=== PATIENT | female | born 1995 | race Caucasian/White ===

== ENCOUNTER 2018-09-20 11:58 | Emergency (ER) | payer SELFPAY ==
[2018-09-20] MEDS ORDERED: ONDANSETRON HCL INJ/PF 4 MG/2 ML SDV IV ONE (13:18)
[2018-09-20] MEDS ORDERED: NORMAL SALINE 1000 ML 1,000 ML IV ONE (13:18)
[2018-09-20] MEDS ORDERED: FAMOTIDINE INJ/PF 20 MG/2 ML SDV IV ONE (13:19)
[2018-09-20] MEDS ORDERED: OXYMETAZOLINE HCL 0.05% NASAL SPRAY 15 ML BOTTLE NASL ONE (13:19)
--- NOTE | 2018-09-20 13:47 | ER Document Report ---
ED General - General Chief Complaint: Nausea/Vomiting Stated Complaint: VOMITING, DIZZY Time Seen by Provider: 09/20/18 13:11 Mode of Arrival: Ambulatory Information source: Patient, [facility] Records Notes: 23-year-old female presents with complaint of cough, nasal congestion and vomiting that started 3 days prior to arrival. Patient describes the cough as dry, persistent and not associated with chest pain or shortness of breath. Patient reports she has been unable to tolerate anything by mouth. She reports multiple episodes of vomiting today. She denies any blood in her stool or emesis. She denies fever, chills, abdominal pain. Last menstrual period was September 17, 2018. Patient did not receive a flu shot this year. She denies sick contacts, recent antibiotic use. TRAVEL OUTSIDE OF THE [place] IN LAST 30 DAYS: No - HPI Onset: Other Onset/Duration: Gradual, Persistent Quality of pain: No pain Associated symptoms: Nonproductive cough, Nausea, Vomiting. denies: Diarrhea Exacerbated by: Coughing, Food Relieved by: Denies Similar symptoms previously: No Recently seen / treated by doctor: No - Related Data Allergies/Adverse Reactions: Penicillins Adverse Reaction (Verified 09/20/18 12:00) Past Medical History - General Information source: Patient - Social History Smoking Status: Never Smoker Frequency of alcohol use: None Drug Abuse: None Lives with: Family Family History: Reviewed & Not Pertinent Patient has suicidal ideation: No Patient has homicidal ideation: No - Medical History Medical History: Negative Renal/ Medical History: Denies: Hx Peritoneal Dialysis Past Surgical History: Reports: Hx Orthopedic Surgery - right femur Review of Systems - Review of Systems Notes: REVIEW OF SYSTEMS: CONSTITUTIONAL : Denies fever, chills, or sweats. Denies recent illness. Denies weight loss, recent hospitalizations. EENT: Denies visual changes, eye pain. Denies sore throat, oral lesions, difficulty swallowing. CARDIOVASCULAR: Denies chest pain. Denies palpitations. Denies lower extremity edema. RESPIRATORY: Denies shortness of breath, wheezing. GASTROINTESTINAL: Denies abdominal pain or distention. Denies diarrhea. Denies blood in vomitus, stools, or per rectum. Denies black, tarry stools. Denies constipation. GENITOURINARY: Denies difficulty urinating, painful urination, frequency, blood in urine, or vaginal discharge. MUSCULOSKELETAL: Denies back or neck pain or stiffness. Denies joint pain or swelling. SKIN: Denies rash, lesions or sores. HEMATOLOGIC : Denies easy bruising or bleeding. LYMPHATIC: Denies swollen glands. NEUROLOGICAL: Denies confusion or altered mental status. Denies loss of consciousness. Denies dizziness or lightheadedness. Denies headache. Denies weakness or paralysis. Denies problems difficulty with ambulation, slurred speech. Denies sensory loss, numbness, or tingling. Denies seizures. PSYCHIATRIC: Denies anxiety or stress. Denies depression, suicidal ideation, or homicidal ideation. Denies visual or auditory hallucinations. Physical Exam - Vital signs Vitals: Temp Pulse Resp BP Pulse Ox 98.2 F 85 18 128/74 H 96 09/20/18 12:19 09/20/18 12:19 09/20/18 12:19 09/20/18 12:09/20/18 12:19 - Notes Notes: PHYSICAL EXAMINATION: GENERAL: Well-appearing, well-nourished and in no acute distress. HEAD: Atraumatic, normocephalic. EYES: Pupils equal round and reactive to light, extraocular movements intact, conjunctiva are normal. ENT: Nares patent, oropharynx clear without exudates. Moist mucous membranes. NECK: Normal range of motion, supple without lymphadenopathy LUNGS: Breath sounds clear to auscultation bilaterally and equal. No wheezes rales or rhonchi. HEART: Regular rate and rhythm without murmurs ABDOMEN: Soft, nontender, nondistended abdomen. No guarding, no rebound. No masses appreciated. Female : deferred Musculoskeletal: Normal range of motion, no pitting or edema. No cyanosis. NEUROLOGICAL: Cranial nerves grossly intact. Normal speech, normal gait. Normal sensory, motor exams PSYCH: Normal mood, normal affect. SKIN: Warm, Dry, normal turgor, no rashes or lesions noted. Course - Re-evaluation Re-evalutation: 09/20/18 14:59 Laboratory 09/20/18 14:06 Influenza A (Rapid) NEGATIVE Influenza B (Rapid) NEGATIVE Chest X-Ray 09/20/18 13:18 IMPRESSION: NO ACUTE RADIOGRAPHIC FINDING IN THE CHEST. Temp Pulse Resp BP Pulse Ox 98.2 F 85 18 128/74 H 96 09/20/18 12:19 09/20/18 12:19 09/20/18 12:19 09/20/18 12:19 09/20/18 12:19 09/20/18 20:14 23-year-old female presents with complaint of cough, nasal congestion and vomiting that started 3 days prior to arrival. Patient describes the cough as dry, persistent and not associated with chest pain or shortness of breath. Patient reports she has been unable to tolerate anything by mouth. She reports multiple episodes of vomiting today. She denies any blood in her stool or emesis. She denies fever, chills, abdominal pain. Last menstrual period was September 17, 2018. Patient did not receive a flu shot this year. She denies sick contacts, recent antibiotic use. Vital signs reviewed and within normal limits upon arrival. Patient does not appear toxic or dehydrated. She is in no acute distress. Influenza is negative. Chest x-ray shows no acute findings. Patient's exam is consistent with a viral upper respiratory infection. Patient has had no vomiting throughout her ED course. Patient did receive IV fluids, Zofran, Reglan, Benadryl,, Afrin. Patient was evaluated and treated as appropriate for the patient's presenting symptoms and complaint, with consideration of any critical or life threatening conditions that may be associated with their obtained history and exam as noted above. All results were discussed with patient . Patient provided the opportunity to ask questions, and express concerns. Patient was educated on treatments based on their presumed diagnosis as noted above. At this time we will discharge the patient with return precautions and follow-up recommendations. Verbal discharge instructions given a the bedside. Medication warnings reviewed. Patient is in agreement with this plan and has verbalized understanding of return precautions. After careful consideration I feel that that patient can be safely discharged from the emergency department, they were advised to followup with a primary care physician in 2-3 days. Dictation on this chart was performed using voice recognition software and may result in unintended grammatical, spelling, syntax or errors. - Vital Signs Vital signs: Temp Pulse Resp BP Pulse Ox 98.3 F 78 18 124/57 L 100 09/20/18 15:15 09/20/18 15:15 09/20/18 12:19 09/20/18 15:15 09/20/18 15:15 - Diagnostic Test Radiology reviewed: Image reviewed, Reports reviewed Discharge - Discharge Clinical Impression: Cough Nausea & vomiting Qualifiers: Vomiting type: unspecified Vomiting Intractability: non-intractable Qualified Code(s): R11.2 - Nausea with vomiting, unspecified Sinusitis Qualifiers: Sinusitis location: frontal Chronicity: unspecified Qualified Code(s): J32.1 - Chronic frontal sinusitis Upper respiratory infection Qualifiers: URI type: unspecified URI Qualified Code(s): J06.9 - Acute upper respiratory infection, unspecified Pharyngitis Qualifiers: Pharyngitis/tonsillitis etiology: unspecified etiology Qualified Code(s): J02.9 - Acute pharyngitis, unspecified Condition: Good Disposition: HOME, SELF-CARE Instructions: Intravenous (IV) Fluids ([facility]), Sinusitis ([facility]), Sore Throat ([facility]), Upper Respiratory Illness ([facility]), Viral Syndrome ([facility]), Vomiting ([facility]) Additional Instructions: Your symptoms are most likely due to a viral infection it should resolve over the next 7-14 days. You should take [id number] guanfacine per bottle instructions to help thin the mucus. For nasal congestion: He is the Afrin that was provided to you for nasal congestion. Use only per bottle instructions and be sure to never use this for more than 3 days if you can develop severe rebound congestion. You may also use tylenol or ibuprofen as needed for aches and throat discomfort. Take the Zofran that was provided for you as needed for nausea. Please be sure to drink plenty of fluids and get rest. Return to the emergency department he began having difficulty breathing, chest pain, persistent vomiting, or any other symptoms that are concerning to you. Prescriptions: Pseudoephedrine HCl [Sudafed] 30 mg PO Q12H #14 tablet Forms: Return to Work
--- NOTE | 2018-09-20 14:11 | RADIOLOGY REPORT (SQ) ---
EXAM DESCRIPTION: CHEST 2 VIEWS COMPLETED DATE/TIME: 09/20/2018 2:03 pm REASON FOR STUDY: cough COMPARISON: None. EXAM PARAMETERS: NUMBER OF VIEWS: two views TECHNIQUE: Digital Frontal and Lateral radiographic views of the chest acquired. RADIATION DOSE: NA LIMITATIONS: none FINDINGS: LUNGS AND PLEURA: No opacities, masses or pneumothorax. No pleural effusion. MEDIASTINUM AND HILAR STRUCTURES: No masses or contour abnormalities. HEART AND VASCULAR STRUCTURES: Heart normal size. No evidence for failure. BONES: No acute findings. HARDWARE: None in the chest. OTHER: No other significant finding. IMPRESSION: NO ACUTE RADIOGRAPHIC FINDING IN THE CHEST. TECHNICAL DOCUMENTATION: JOB ID: [id number] [employer]- All Rights Reserved Reading location - IP/workstation name: [email or web address]
[2018-09-20 14:41] LABS: A TYPE INFLUENZA AG NEGATIVE (NEGATIVE); B INFLUENZA AG NEGATIVE (NEGATIVE)
[2018-09-20] MEDS ORDERED: DIPHENHYDRAMINE HCL 50 MG/ML VIAL IV ONE (14:59)
[2018-09-20] MEDS ORDERED: PSEUDOEPHEDRINE HCL 30 MG TABLET PO ONE (14:59)
[2018-09-20] MEDS ORDERED: METOCLOPRAMIDE HCL INJ/PF 10 MG/2 ML SDV IV ONE (14:59)
[2018-09-20] MEDS ORDERED: LIDOCAINE 2% VISCOUS SOLN 20 ML UDCUP PO ONE (15:00)
[2018-09-20] MEDS ORDERED: ONDANSETRON ODT 4 MG TAB (6 TAB/ER DISP) PO PRN (15:04)
[2018-09-20 15:44] VITALS: BP 124/57
== END 2018-09-20 15:44 | disposition home or self-care (01) ==
LOC: ER 11:58
DX: J02.9 Acute pharyngitis, unspecified (principal); J06.9 Acute upper respiratory infection, unspecified; J32.1 Chronic frontal sinusitis; R68.89 Other general symptoms and signs; R11.2 Nausea with vomiting, unspecified; Z88.0 Allergy status to penicillin
CPT/HCPCS: 99284; 96361; 96374; 96375; 87804; 71046; J1200; J3490 ×2; J2765; J2405; J7030; S0028

== ENCOUNTER 2018-10-02 13:25 | Emergency (ER) | payer OTHER ==
[2018-10-02] MEDS ORDERED: ACETAMINOPHEN 325 MG TABLET PO ONE (13:49)
[2018-10-02] MEDS ORDERED: LIDOCAINE 5% (700 MG) TRANSDERMAL ADH..PATCH TP ONE (13:50)
--- NOTE | 2018-10-02 13:52 | ER Document Report ---
HPI - HPI Patient complains to provider of: arm Injury Time Seen by Provider: 10/02/18 13:41 Onset: Other - 2 days ago Onset/Duration: Persistent Quality of pain: Achy Pain Level: 3 Context: Patient states she slipped at work and fell hitting the posterior aspect of her distal right humerus on a sink divider. Patient states that since then she has had weakness to her right hand and has had pain to the entire right upper extremity. Patient denies any head injury or loss of consciousness. Patient without any neck pain. Patient does have left upper thoracic back pain. Associated Symptoms: Other - Right upper extremity pain Exacerbated by: Movement Relieved by: Denies Similar symptoms previously: No Recently seen / treated by doctor: No - ROS ROS below otherwise negative: Yes Systems Reviewed and Negative: Yes All other systems reviewed and negative - CONSTITUTIONAL Constitutional: DENIES: Fever, Chills - NEURO Neurology: REPORTS: Weakness - Weakness to the adding machine mechanic of the ri. DENIES: Headache - CARDIOVASCULAR Cardiovascular: DENIES: Chest pain - RESPIRATORY Respiratory: DENIES: Trouble Breathing, Coughing - GASTROINTESTINAL Gastrointestinal: DENIES: Nausea - REPRODUCTIVE Reproductive: DENIES: : - MUSCULOSKELETAL Musculoskeletal: REPORTS: Extremity pain - Right upper extremity pain, Back Pain - Upper back pain - DERM Skin Color: Ecchymosis - Right upper arm Skin Problems: None Past Medical History - General Information source: Patient - Social History Smoking Status: Current Every Day Smoker Smoking Education Provided: Yes Frequency of alcohol use: None Drug Abuse: None Occupation: [employer] Lives with: Spouse/Significant other Family History: Reviewed & Not Pertinent - Medical History Medical History: Negative Renal/ Medical History: Denies: Hx Peritoneal Dialysis Past Surgical History: Reports: Hx Orthopedic Surgery - right femur Vertical Provider Document - CONSTITUTIONAL Agree With Documented VS: Yes Exam Limitations: No Limitations General Appearance: WD/WN, No Apparent Distress - INFECTION CONTROL TRAVEL OUTSIDE OF THE [place] IN LAST 30 DAYS: No - HEENT HEENT: Atraumatic, Normocephalic - NECK Neck: Normal Inspection, Supple. negative: Lymphadenopathy-Left, Lymphadenopathy-Right - RESPIRATORY Respiratory: Breath Sounds Normal, No Respiratory Distress - CARDIOVASCULAR Cardiovascular: Regular Rate, Regular Rhythm, No Murmur Pulses: Normal: Radial Notes: Normal capillary refill to fingers of right hand - BACK Back: Abnormal Inspection - Left thoracic paraspinal tenderness, no midline tenderness step-off or deformity. negative: CVA Tenderness-Right, CVA Tenderness-Left - MUSCULOSKELETAL/EXTREMETIES Notes: Patient able to move right shoulder joint through full range of motion, patient moves right elbow guardedly. Patient with weakened adding machine mechanic to right hand. Patient able to extend and flex the right wrist and is able to abduct all the fingers of the right hand. Patient is unable to oppose the thumb and little finger of the right hand. Patient able to flex all fingers of hand although was not able to close hand into a fist. - NEURO Level of Consciousness: Awake, Alert, Appropriate Notes: Weakened adding machine mechanic to right hand - DERM Integumentary: Warm, Dry Adult Front & Back Diagram: 1 - Ecchymotic area to distal right humerus Course - Re-evaluation Re-evalutation: 10/02/18 14:51 Patient can flex fingers of right hand although cannot make a fist. Patient cannot oppose the right thumb and small finger. Patient does have paresthesia and pain symptoms in a medial, radial and ulnar nerve distribution pattern although is able to extend and flex the wrist and fingers of the right hand, and patient is able to abduct the fingers of the right hand. Patient without any findings worrisome for vascular compromise. No fracture noted on x-ray. Patient advised that she will need to see neurology and orthopedics for further evaluation. - Vital Signs Vital signs: Temp Pulse Resp BP Pulse Ox 98.7 F 92 18 149/86 H 95 10/02/18 13:35 10/02/18 13:35 10/02/18 13:35 10/02/18 13:35 10/02/18 13:35 - Laboratory Laboratory results interpreted by me: 10/02/18 14:54 Labs- Entire Visit 10/02/18 14:03 Urine HCG, Qual NEGATIVE - Diagnostic Test Radiology reviewed: Reports reviewed Discharge - Discharge Clinical Impression: Right humerus contusion, Nerve injury Upper back strain Qualifiers: Encounter type: initial encounter Qualified Code(s): S29.012A - Strain of muscle and tendon of back wall of thorax, initial encounter Condition: Stable Disposition: HOME, SELF-CARE Instructions: Contusion ([facility]), Nerve Contusion ([facility]), Upper Back Strain ([facility]) Additional Instructions: Return immediately for any new or worsening symptoms Followup with your Workmen's Compensation care provider, call tomorrow to make a followup appointment You will need referral to neurology and orthopedics for further evaluation. Prescriptions: Cyclobenzaprine HCl [Flexeril 10 Mg Tablet] 10 mg PO TID #15 tablet Naproxen [Naprosyn 250 Nmg Tablet] 1 tab PO BID #14 tablet Forms: Smoking Cessation Education, Return to Work Referrals: [facility] [Provider Group] - Follow up as needed NEUROLOGY [Provider Group] - Follow up as needed
--- NOTE | 2018-10-02 14:11 | RADIOLOGY REPORT (SQ) ---
EXAM DESCRIPTION: HUMERUS RIGHT COMPLETED DATE/TIME: 10/02/2018 2:02 pm REASON FOR STUDY: fall, R upper arm pain COMPARISON: None. NUMBER OF VIEWS: Two views. TECHNIQUE: Two radiographic images were acquired of the right humerus to include elbow and shoulder in at least one projection. LIMITATIONS: None. FINDINGS: MINERALIZATION: Normal. BONES: No acute fracture or dislocation. No worrisome bone lesions. SOFT TISSUES: No obvious swelling or foreign body. OTHER: No other significant finding. IMPRESSION: NEGATIVE STUDY OF THE RIGHT HUMERUS. NO RADIOGRAPHIC EVIDENCE OF ACUTE INJURY. TECHNICAL DOCUMENTATION: JOB ID: [id number] [employer]- All Rights Reserved Reading location - IP/workstation name: [email or web address]
[2018-10-02 15:25] VITALS: BP 124/72
== END 2018-10-02 15:25 | disposition home or self-care (01) ==
LOC: ER 13:25
DX: S29.012A Strain of muscle and tendon of back wall of thorax, initial encounter (principal); S40.021A Contusion of right upper arm, initial encounter; T14.8XXA Other injury of unspecified body region, initial encounter; R53.1 Weakness; R20.2 Paresthesia of skin; W01.198A Fall on same level from slipping, tripping and stumbling with subsequent striking against other object, initial encounter; Y92.511 Restaurant or cafe as the place of occurrence of the external cause; Y99.0 Civilian activity done for income or pay; F17.200 Nicotine dependence, unspecified, uncomplicated
CPT/HCPCS: 81025; 99283

== ENCOUNTER → 2020-01-02 | Outpatient (CLI) | payer SELFPAY ==
--- NOTE | 2020-01-02 15:03 | RADIOLOGY REPORT (SQ) ---
EXAM DESCRIPTION: U/S HR2BFIP TRNABD 1GES W/ODOP IMAGES COMPLETED DATE/TIME: 01/02/2020 1:55 pm REASON FOR STUDY: Z34.81 ENCOUNTER FOR SUPRVSN OF NORMAL , FIRST TRIMESTER Z34.81 ENCOUNTE R FOR SUPRVSN OF NORMAL , FIRST TRIM COMPARISON: None. TECHNIQUE: Static and Dynamic grayscale imaging performed of gravid uterus using transabdominal appr oach. Additional selected color Doppler and spectral images recorded. All stored on PACS. LIMITATIONS: None. FINDINGS: FETUSES SEEN:1 EGA: 16 weeks 5 days Calculated using BPD,FL,HC,AC documented on images. 6 weeks discrepancy with cl inical dates. DUONG: 06/13/2020 EFW: 167+/- 25 grams PERCENTILE: Not applicable. Fetus less than or equal to 20 weeks gestation. MALLORY: Adequate PLACENTA: Posterior. Appears to be a marginal placenta previa at this time. PRESENTATION: Breech ANATOMY: HEART RATE: 155 beats per minute. Anatomical survey not performed. MATERNAL ADNEXA: Maternal ovaries not visualized. CERVICAL LENGTH: 6 cm. Closed. OTHER: No other significant finding. IMPRESSION: LIVING INTRAUTERINE . ESTIMATED GESTATIONAL AGE 16 weeks 5 days. Anatomical survey was not performed. Marginal placenta previa at this time. Recommend appropriate follow-up. Trimester of : Second trimester - 13 weeks 1 day to 27 weeks 6 days. TECHNICAL DOCUMENTATION: JOB ID: [id number] 2010 [employer]- All Rights Reserved Reading location - IP/workstation name: [email or web address]
== END ==
LOC: RAD 13:04
PROVIDERS: ATTEND Midwife
DX: Z34.82 Encounter for supervision of other normal pregnancy, second trimester (principal); Z3A.16 16 weeks gestation of pregnancy
CPT/HCPCS: 76801

== ENCOUNTER 2020-01-10 13:21 | Emergency (ER) | payer MEDICAID ==
--- NOTE | 2020-01-10 14:23 | ER Document Report ---
ED Medical Screen (RME) - General Chief Complaint: Abdominal Pain Stated Complaint: ABDOMINAL PAIN Time Seen by Provider: 01/10/20 14:22 Primary Care Provider: AMEENA MUNGUIA CNM [Primary Care Provider] - Follow up as needed Mode of Arrival: Ambulatory Information source: Patient Notes: 24-year-old female presented to ED for complaint of severe lower abdominal pelvic pain. She is 17 weeks . Her last ultrasound was on 21 December. She states at that time they told her she had placenta previa. She is alert oriented respirations regular nonlabored speaking in full sentences. She states she is not having any vaginal discharge or vaginal bleeding. I have greeted and performed a rapid initial assessment of this patient. A comprehensive ED assessment and evaluation of the patient, analysis of test results and completion of medical decision making process will be conducted by an additional ED providers. TRAVEL OUTSIDE OF THE [place] IN LAST 30 DAYS: No - Related Data Allergies/Adverse Reactions: Penicillins Adverse Reaction (Verified 01/10/20 14:14) Past Medical History - Social History Frequency of alcohol use: None Drug Abuse: None Renal/ Medical History: Denies: Hx Peritoneal Dialysis Past Surgical History: Reports: Hx Orthopedic Surgery - right femur Physical Exam - Vital signs Vitals: Temp 98.3 F 01/10/20 13:22 Course - Vital Signs Vital signs: Temp Pulse Resp BP Pulse Ox 98.3 F 102 H 22 H 145/83 H 98 01/10/20 13:26 01/10/20 13:26 01/10/20 13:26 01/10/20 13:26 01/10/20 13:26 Doctor's Discharge - Discharge Referrals: AMEENA MUNGUIA CNM [Primary Care Provider] - Follow up as needed
[2020-01-10] MEDS ORDERED: NORMAL SALINE 1000 ML 1,000 ML IV ONE ×2 (14:24→16:34)
[2020-01-10 14:52] LABS: ABSOLUTE BASOPHILS # (AUTO) 0.1 10^3/uL (0.0-0.2); ABSOLUTE EOSINOPHILS # (AUTO) 0.1 10^3/uL (0.0-0.6); ABSOLUTE MONOCYTES (AUTO) 0.5 10^3/uL (0.1-1.4); ABSOLUTE NEUT (AUTO) 11.8 10^3/uL (1.7-8.2); BASOPHILS % (AUTO) 0.4 % (0-2); EOSINOPHILS % (AUTO) 0.4 % (0-6); HEMATOCRIT 36.9 % (36.0-47.0); HEMOGLOBIN 12.6 g/dL (12.0-15.5); LYMPHOCYTES % (AUTO) 13.7 % (13-45); MEAN CORPUSCULAR HEMOGLOBIN 27.9 pg (27.0-33.4); MEAN CORPUSCULAR HGB CONC 34.2 g/dL (32.0-36.0); MEAN CORPUSCULAR VOLUME 82 fl (80-97); MONOCYTES % (AUTO) 3.5 % (3-13); PLATELET COUNT 240 10^3/uL (150-450); RED BLOOD COUNT 4.51 10^6/uL (3.72-5.28); RED CELL DISTRIBUTION WIDTH 14.6 % (11.5-14.0); TOTAL CELLS COUNTED % (AUTO) 100 %; WHITE BLOOD COUNT 14.4 10^3/uL (4.0-10.5)
[2020-01-10 15:08] LABS: ALBUMIN 3.8 g/dL (3.5-5.0); ALKALINE PHOSPHATASE 71 U/L (38-126); ANION GAP 9 (5-19); ASPARTATE AMINO TRANSFERASE 20 U/L (14-36); BILIRUBIN,TOTAL 0.4 mg/dL (0.2-1.3); BLOOD UREA NITROGEN 6 mg/dL (7-20); CALCIUM 9.6 mg/dL (8.4-10.2); CARBON DIOXIDE 24 mmol/L (22-30); CHLORIDE 102 mmol/L (98-107); GLUCOSE 85 mg/dL (75-110); POTASSIUM 4.2 mmol/L (3.6-5.0); TOTAL PROTEIN 7.3 g/dL (6.3-8.2)
--- NOTE | 2020-01-10 15:52 | RADIOLOGY REPORT (SQ) ---
EXAM DESCRIPTION: U/S OB LIMITED IMAGES COMPLETED DATE/TIME: 01/10/2020 3:17 pm REASON FOR STUDY: 17 weeks severe abdominal pain COMPARISON: Ultrasound of the abdomen from 01/02/2020. TECHNIQUE: Limited transabdominal grayscale ultrasound for evaluation of specific requested obstetri bhavya parameters. LIMITATIONS: None. FINDINGS: CERVICAL LENGTH: 2.8 cm Closed. MALLORY: 4 cm. LVP: 4 cm. FHR: 149 beats per minute. PRESENTATION: Vertex PLACENTA: Posterior ANATOMY: Not assessed OTHER: The placenta is heterogeneous but on Doppler there is intact color flow within it. IMPRESSION: LIMITED OBSTETRICAL ULTRASOUND WITH MEASURED PARAMETERS DELINEATED ABOVE. THE PLACENTA IS HETEROGENEOUS BUT ON DOPPLER THERE IS INTACT COLOR FLOW WITHIN IT. A SHORT-TERM FOLL OW-UP ULTRASOUND IS RECOMMENDED. Trimester of : Second trimester - 13 weeks 1 day to 27 weeks 6 days. TECHNICAL DOCUMENTATION: JOB ID: [id number] 2010 [employer]- All Rights Reserved Reading location - IP/workstation name: [email or web address]
--- NOTE | 2020-01-10 16:37 | ER Document Report ---
ED General - General Chief Complaint: Abdominal Pain Stated Complaint: ABDOMINAL PAIN Time Seen by Provider: 01/10/20 14:22 Primary Care Provider: AMEENA MUNGUIA CNM [NO LOCAL MD] - Follow up as needed Mode of Arrival: Ambulatory Information source: Patient TRAVEL OUTSIDE OF THE [place] IN LAST 30 DAYS: No - HPI Notes: Patient complains of bilateral lower quadrant abdominal pain. She states this started this morning. She states it is severe and slightly worse on the right side than the left. She states it does radiate from the right to the left. It is constant and sharp. It is been getting worse throughout the day. She also states she has nausea and vomiting. No problems with stools. No vaginal discharge or bleeding. She is currently approximately 13 weeks . No fevers. She denies any previous surgeries on her abdomen. - Related Data Allergies/Adverse Reactions: Penicillins Adverse Reaction (Verified 01/10/20 14:14) Past Medical History - General Information source: Patient - Social History Smoking Status: Never Smoker Frequency of alcohol use: None Drug Abuse: None Family History: Reviewed & Not Pertinent Patient has homicidal ideation: No Renal/ Medical History: Denies: Hx Peritoneal Dialysis Past Surgical History: Reports: Hx Orthopedic Surgery - right femur Review of Systems - Review of Systems Constitutional: denies: Chills, Fever Cardiovascular: denies: Chest pain, Palpitations Respiratory: denies: Cough, Short of breath -: Yes All other systems reviewed and negative Physical Exam - Vital signs Vitals: Temp 98.3 F 01/10/20 13:22 Interpretation: Normal - General General appearance: Appears well, Alert - HEENT Head: Normocephalic, Atraumatic Eyes: Normal Pupils: PERRL - Respiratory Respiratory status: No respiratory distress Chest status: Nontender Breath sounds: Normal Chest palpation: Normal - Cardiovascular Rhythm: Regular Heart sounds: Normal auscultation Murmur: No - Abdominal Inspection: Normal Distension: No distension Bowel sounds: Normal Tenderness: Tender - Patient has bilateral lower quadrant tenderness to palpation slightly greater on the right. Organomegaly: No organomegaly - Back Back: Normal, Nontender - Extremities General upper extremity: Normal inspection, Nontender, Normal color, Normal ROM, Normal temperature General lower extremity: Normal inspection, Nontender, Normal color, Normal ROM, Normal temperature, Normal weight bearing. No: Jenny's sign - Neurological Neuro grossly intact: Yes Cognition: Normal Orientation: AAOx4 [place] Coma Scale Eye Opening: Spontaneous Kaci Coma Scale Verbal: Oriented Kaci Coma Scale Motor: Obeys Commands [place] Coma Scale Total: 15 Speech: Normal Motor strength normal: LUE, RUE, LLE, RLE Sensory: Normal - Psychological Associated symptoms: Normal affect, Normal mood - Skin Skin Temperature: Warm Skin Moisture: Dry Skin Color: Normal Course - Re-evaluation Re-evalutation: 01/10/20 18:36 At this time patient is still waiting for the MRI of her abdomen. I will turn the care of the patient over Dr. Cortes who will follow up on MRI results determine final disposition and plan. Ultrasound and clinical evaluation is not consistent with an ectopic at this time. Her vital signs are stable. - Vital Signs Vital signs: Temp Pulse Resp BP Pulse Ox 98.3 F 102 H 22 H 145/83 H 98 01/10/20 13:26 01/10/20 13:26 01/10/20 13:26 01/10/20 13:26 01/10/20 13:26 - Laboratory Result Diagrams: 01/10/20 14:35 01/10/20 14:35 Laboratory results interpreted by me: 01/10/20 01/10/20 01/10/20 14:35 14:35 16:36 WBC 14.4 H RDW 14.6 H Absolute Neuts (auto) 11.8 H Seg Neutrophils % 82.0 H Sodium 134.5 L BUN 6 L Creatinine 0.46 L Beta HCG, Quant 39369.00 H Urine Ketones 20 H Urine Nitrite POSITIVE H Ur Leukocyte Esterase MODERATE H Urine Ascorbic Acid 20 H - Diagnostic Test Radiology reviewed: Image reviewed, Reports reviewed Discharge - Discharge Clinical Impression: Abdominal pain Qualifiers: Abdominal location: lower abdomen, unspecified Qualified Code(s): R10.30 - Lower abdominal pain, unspecified Condition: Stable Disposition: OTHER Referrals: AMEENA MUNGUIA CNM [NO LOCAL MD] - Follow up as needed
[2020-01-10 17:01] LABS: APPEARANCE,URINE SLIGHTLY-CLOUDY; BILIRUBIN,URINE NEGATIVE (NEGATIVE); COLOR,URINE YELLOW; GLUCOSE, URINE NEGATIVE (NEGATIVE); KETONES,URINE 20 mg/dL (NEGATIVE); LEUKOCYTE ESTERASE,URINE MODERATE (NEGATIVE); NITRITE,URINE POSITIVE (NEGATIVE); PROTEIN,URINE NEGATIVE (NEGATIVE); URINE SPECIFIC GRAVITY 1.013; UROBILINOGEN,URINE NEGATIVE mg/dL (<2.0)
--- NOTE | 2020-01-10 20:18 | RADIOLOGY REPORT (SQ) ---
EXAM DESCRIPTION: MRI of the abdomen without IV contrast Completed date and time 01/10/2020 7:13 PM. CLINICAL HISTORY: preg/rlq pain/r.o. appy COMPARISON: None TECHNIQUE: Multiplanar images of the abdomen and pelvis were obtained without the administration of intravenous contrast FINDINGS: Study is limited by body habitus. The liver appears enlarged measuring greater than 20 cm. Spleen is also prominent measuring 14.7 cm. Unremarkable gallbladder. Kidneys and adrenal glands appear within normal limits. Enlarged uterus with single intrauterine gestation noted. The appendix is identified appears unremarkable. No free fluid or inflammatory change noted in the abdomen. IMPRESSION: No acute abnormalities. Specifically no evidence of appendicitis Hepatosplenomegaly
[2020-01-10 21:29] VITALS: BP 141/89
== END 2020-01-10 21:29 | disposition home or self-care (01) ==
LOC: ER 13:21
DX: O26.892 Other specified pregnancy related conditions, second trimester (principal); R10.31 Right lower quadrant pain; R10.32 Left lower quadrant pain; R10.813 Right lower quadrant abdominal tenderness; R10.814 Left lower quadrant abdominal tenderness; Z3A.00 Weeks of gestation of pregnancy not specified
CPT/HCPCS: 99284; 96360; 96361; 86900; 86901; 36415; 84702; 85025; 80053; 81001; 74181; 76815; J7030

== ENCOUNTER → 2020-01-30 | Outpatient (CLI) | payer MEDICAID ==
--- NOTE | 2020-01-30 13:00 | RADIOLOGY REPORT (SQ) ---
EXAM DESCRIPTION: U/S OB 14+ TRNABD 1GES W/O DOP IMAGES COMPLETED DATE/TIME: 01/30/2020 10:11 am REASON FOR STUDY: Z34.82 ENCOUNTER FOR SUPRVSN OF NORMAL , SECOND TRIMESTER Z34.82 ENCOUNT ER FOR SUPRVSN OF NORMAL , SECOND TRI COMPARISON: None. TECHNIQUE: Static and Dynamic grayscale imaging performed of gravid uterus using transabdominal appr oach. Additional selected color Doppler and spectral images recorded. All stored on PACS. LIMITATIONS: Body habitus. FINDINGS: FETUSES SEEN:1 EGA: 20 weeks 4 days Calculated using BPD,FL,HC,AC documented on images. No discrepancy with clinica l dates. DUONG: 06/14/2020 EFW: 378 grams PERCENTILE: Not calculated LVP: 4.1 x 6 cm PLACENTA: Posterior GRADE: I PRESENTATION: Breech ANATOMY: HEART RATE: 147 beats per minute. FOUR CHAMBER HEART: Visualized. THREE VESSEL CORD: Yes. CORD INSERTION: Visualized. KIDNEYS AND BLADDER: Grossly normal. Suboptimal visualization. STOMACH: Visualized. Appears normal. SPINE: Grossly normal. Suboptimal visualization. BRAIN AND LATERAL VENTRICLES: Visualized. Appear normal. OTHER: Suboptimal visualization of the upper extremities. MATERNAL ADNEXA: Maternal ovaries not visualized. CERVICAL LENGTH: 3.4 cm. Closed. OTHER: No other significant finding. IMPRESSION: LIVING INTRAUTERINE . ESTIMATED GESTATIONAL AGE 20 weeks 4 days NO VISUALIZED ANOMALIES. Trimester of : Second trimester - 13 weeks 1 day to 27 weeks 6 days. TECHNICAL DOCUMENTATION: JOB ID: [id number] 2010 [employer]- All Rights Reserved Reading location - IP/workstation name: [email or web address]
== END ==
LOC: RAD 09:17
PROVIDERS: ATTEND Nurse Practitioner Family
DX: Z34.82 Encounter for supervision of other normal pregnancy, second trimester (principal); Z3A.20 20 weeks gestation of pregnancy
CPT/HCPCS: 76805

== ENCOUNTER 2020-03-10 15:24 | Outpatient (CLI) | payer MEDICAID ==
[2020-03-10 16:20] LABS: APPEARANCE,URINE CLEAR; BILIRUBIN,URINE NEGATIVE (NEGATIVE); COLOR,URINE YELLOW; GLUCOSE, URINE NEGATIVE (NEGATIVE); KETONES,URINE NEGATIVE (NEGATIVE); LEUKOCYTE ESTERASE,URINE SMALL (NEGATIVE); NITRITE,URINE NEGATIVE (NEGATIVE); PROTEIN,URINE NEGATIVE (NEGATIVE); URINE SPECIFIC GRAVITY 1.019; UROBILINOGEN,URINE NEGATIVE mg/dL (<2.0)
[2020-03-10 16:30] LABS: URINE AMPHETAMINES SCREEN NEGATIVE; URINE BARBITURATES SCREEN NEGATIVE; URINE BENZODIAZEPINES SCREEN NEGATIVE; URINE COCAINE SCREEN NEGATIVE; URINE METHADONE SCREEN NEGATIVE; URINE PHENCYCLIDINE SCREEN NEGATIVE
[2020-03-10 16:36] LABS: URINE MARIJUANA (THC) SCREEN UNCONFIRMED POSITIVE
[2020-03-10 16:59] LABS: BACTERIA (WET MOUNT) 4+ BACTERIA SEEN; EPITHELIALS (WET MOUNT) 3+ EPITHELIALS SEEN; RBCS (WET MOUNT) FEW RBCS SEEN; T.VAGINALIS (WET MOUNT) NO TRICHOMONAS SEEN; WBCS (WET MOUNT) 3+ WBCS SEEN; YEAST (WET MOUNT) NO YEAST SEEN
[2020-03-10 18:25] LABS: CHLAM PCR NOT DETECTED (NOT DETECT)
[2020-03-10] MEDS ORDERED: FOSFOMYCIN TROMETHAMINE 3 GM PACKET PO ONE (19:00)
== END 2020-03-10 19:11 | disposition home or self-care (01) ==
LOC: LC 15:24
PROVIDERS: ATTEND Obstetrics & Gynecology
DX: O21.2 Late vomiting of pregnancy (principal); Z3A.26 26 weeks gestation of pregnancy
CPT/HCPCS: 87086; 87210; 87088; 81001; 80307; 87491; 87591; 59899; G0480 ×2; J3490; 80349; 87186

== ENCOUNTER 2020-05-28 02:25 | Outpatient (CLI) | payer MEDICAID ==
[2020-05-28 03:02] LABS: APPEARANCE,URINE CLOUDY; BILIRUBIN,URINE NEGATIVE (NEGATIVE); COLOR,URINE YELLOW; GLUCOSE, URINE NEGATIVE (NEGATIVE); KETONES,URINE NEGATIVE (NEGATIVE); LEUKOCYTE ESTERASE,URINE LARGE (NEGATIVE); NITRITE,URINE NEGATIVE (NEGATIVE); PROTEIN,URINE 30 mg/dL (NEGATIVE); URINE SPECIFIC GRAVITY 1.016; UROBILINOGEN,URINE NEGATIVE mg/dL (<2.0)
[2020-05-28 03:17] LABS: URINE AMPHETAMINES SCREEN NEGATIVE; URINE BARBITURATES SCREEN NEGATIVE; URINE BENZODIAZEPINES SCREEN NEGATIVE; URINE COCAINE SCREEN NEGATIVE; URINE MARIJUANA (THC) SCREEN NEGATIVE; URINE METHADONE SCREEN NEGATIVE; URINE PHENCYCLIDINE SCREEN NEGATIVE
[2020-05-28] MEDS ORDERED: HYDROXYZINE PAMOATE 50 MG CAPSULE PO ONE (04:13)
[2020-05-28] MEDS ORDERED: HYDROXYZINE PAMOATE 50 MG CAPSULE ONE (04:30)
== END 2020-05-28 04:40 | disposition home or self-care (01) ==
LOC: LC 02:25
PROVIDERS: ATTEND Obstetrics & Gynecology
DX: O47.1 False labor at or after 37 completed weeks of gestation (principal); Z3A.37 37 weeks gestation of pregnancy; Z88.0 Allergy status to penicillin; Z91.018 Allergy to other foods; Z87.891 Personal history of nicotine dependence
CPT/HCPCS: 80307; 81005

== ENCOUNTER 2020-06-01 20:51 | Outpatient (CLI) | payer MEDICAID ==
[2020-06-01 21:42] LABS: APPEARANCE,URINE CLEAR; BILIRUBIN,URINE NEGATIVE (NEGATIVE); COLOR,URINE YELLOW; GLUCOSE, URINE NEGATIVE (NEGATIVE); KETONES,URINE NEGATIVE (NEGATIVE); LEUKOCYTE ESTERASE,URINE NEGATIVE (NEGATIVE); NITRITE,URINE NEGATIVE (NEGATIVE); PROTEIN,URINE NEGATIVE (NEGATIVE); URINE SPECIFIC GRAVITY 1.015; UROBILINOGEN,URINE NEGATIVE mg/dL (<2.0)
[2020-06-01 22:02] LABS: URINE AMPHETAMINES SCREEN NEGATIVE; URINE BARBITURATES SCREEN NEGATIVE; URINE BENZODIAZEPINES SCREEN NEGATIVE; URINE COCAINE SCREEN NEGATIVE; URINE MARIJUANA (THC) SCREEN NEGATIVE; URINE METHADONE SCREEN NEGATIVE; URINE PHENCYCLIDINE SCREEN NEGATIVE
== END 2020-06-01 22:47 | disposition home or self-care (01) ==
LOC: LC 20:51
PROVIDERS: ATTEND Obstetrics & Gynecology
DX: O47.1 False labor at or after 37 completed weeks of gestation (principal); Z3A.38 38 weeks gestation of pregnancy; Z88.0 Allergy status to penicillin; Z87.891 Personal history of nicotine dependence; Z91.018 Allergy to other foods
CPT/HCPCS: 59025; 80307; 81005; 84112

== ENCOUNTER 2020-06-20 | Inpatient (IN) | payer MEDICAID ==
[2020-06-20] MEDS ORDERED: RINGERS SOLUTION,LACTATED 1,000 ML IV PRN (00:32)
[2020-06-20] MEDS ORDERED: OXYTOCIN/0.9 % SODIUM CHLORIDE 30 UNIT/500 ML RTUINJ ONE (00:52)
[2020-06-20] MEDS ORDERED: OXYTOCIN 10 UNIT/ML VIAL ONE (00:52)
[2020-06-20] MEDS ORDERED: LIDOCAINE 1% INJ-PF (10 MG/ML) 30 ML SDV ONE (00:52)
[2020-06-20] MEDS ORDERED: MISOPROSTOL 0.2 MG TABLET ONE (00:52)
[2020-06-20] MEDS ORDERED: RINGERS SOLUTION,LACTATED 1,000 ML IV ONE (01:00)
[2020-06-20 01:15] LABS: ABSOLUTE BASOPHILS # (AUTO) 0.1 10^3/uL (0.0-0.2); ABSOLUTE EOSINOPHILS # (AUTO) 0.1 10^3/uL (0.0-0.6); ABSOLUTE LYMPHOCYTES (AUTO) 2.2 10^3/uL (0.5-4.7); ABSOLUTE MONOCYTES (AUTO) 0.9 10^3/uL (0.1-1.4); ABSOLUTE NEUT (AUTO) 14.4 10^3/uL (1.7-8.2); BASOPHILS % (AUTO) 0.6 % (0-2); EOSINOPHILS % (AUTO) 0.3 % (0-6); HEMATOCRIT 35.5 % (36.0-47.0); HEMOGLOBIN 11.7 g/dL (12.0-15.5); LYMPHOCYTES % (AUTO) 12.7 % (13-45); MEAN CORPUSCULAR HEMOGLOBIN 25.7 pg (27.0-33.4); MEAN CORPUSCULAR HGB CONC 33.1 g/dL (32.0-36.0); MEAN CORPUSCULAR VOLUME 78 fl (80-97); MONOCYTES % (AUTO) 5.3 % (3-13); PLATELET COUNT 227 10^3/uL (150-450); RED BLOOD COUNT 4.56 10^6/uL (3.72-5.28); RED CELL DISTRIBUTION WIDTH 16.8 % (11.5-14.0); SEGMENTED NEUTROPHILS % (AUTO) 81.1 % (42-78); TOTAL CELLS COUNTED % (AUTO) 100 %; WHITE BLOOD COUNT 17.7 10^3/uL (4.0-10.5)
--- NOTE | 2020-06-20 01:39 | Admission Physical ---
Datetime Report Generated by CPN: 06/20/2020 01:39 CURRENT ADMISSION Chief Complaint: Uterine Contractions Indication for Induction: Not Applicable Admit Impression : Term, Intrauterine Admit Plan: Admit to Unit; Initiate Labor Protocol ALLERGIES Medication Allergies: Yes Medication Allergies: Penicillins (06/20/2020) Latex: No Latex Allergies Food Allergies: Onions (03/10/2020) Environmental Allergies: n/a OBSTETRICAL HISTORY EDC: 06/13/2020 00:00 : 3 Para: 2 Term: 2 : 0 SAB: 0 IAB: 0 Ectopic: 0 Livin Cesareans: 0 VBACs: 0 Multiple Births: 0 Gestational Diabetes: No Rh Sensitization: No Incompetent Cervix: No DAO: No Infertility: No ART Treatment: No Uterine Anomaly: No IUGR: No Hx Previous C/S: No Macrosomia: No Hx Loss/Stillborn: No PIH: No Hx : No Placenta Previa/Abruption: No Depression/PP Depression: Yes PTL/PROM: No Post Hemorrhage: No Current Procedures: Ultrasound Obstetrical History Comments: G1- Girl 09/29/2014 G2- Boy 03/15/2017 G3- Current SEE RECORDS Alcohol: No Marijuana : Yes Cocaine: No Other Illicit Drugs: No Cigarettes: Former Smoker. 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 Heart Disease: No Hosp/Surgery: Yes Autoimmune Disorder: No Anesthetic Complications: No Kidney Disease: No Abnormal Pap Smear: No Neuro/Epilepsy: No Psychiatric Disorders: No Other Medical Diseases: No Hepatitis/Liver Disease: No Significant Family History: No Varicosities/Phlebitis: No Trauma/Violence : No Thyroid Dysfunction: No Medical History Comments: Hospitalized for depression in 2018 INFECTIOUS HISTORY Gonorrhea: No Genital Herpes: No Chlamydia: No Tuberculosis: No Syphilis: No Hepatitis: No HIV/AIDS Exposure: No Rash or Viral Illness: No PHYSICAL EXAM General: Normal HEENT: Normal Neurologic: Normal Thyroid: Normal Heart: Normal Lungs: Normal Breast: Deferred Back: Normal Abdomen: Normal Genitourinary Exam: Normal Extremities: Normal DTRs: Normal Pelvic Type: Adequate Vital Signs: Reviewed VAGINAL EXAM Dilatation: 10 Effacement: 100 Station: 0 MEMBRANES Pooling: Negative Membranes: Intact FETUS A EGA: 41.0 Monitoring: External US FHR- Baseline: 120 Decelerations: None Presentation: Vertex PLANS FOR LABOR AND DELIVERY Labor and Delivery: None Pain Management: None Feeding Preference: Both Benefit of Breast Feed Discussed: Yes Circumcision: N/A INFORMED CONSENT Signature: with User ID: [email or web address]
[2020-06-20] MEDS ORDERED: ACETAMINOPHEN WITH CODEINE #3 TABLET PO PRN ×2 (01:44)
[2020-06-20] MEDS ORDERED: DIPHENHYDRAMINE HCL 25 MG CAPSULE PO PRN (01:44)
[2020-06-20] MEDS ORDERED: PSEUDOEPHEDRINE HCL 30 MG TABLET PO PRN (01:44)
[2020-06-20] MEDS ORDERED: NA PHOS,M-B/NA PHOS,DI-BA (ADULT) 133 ML ENEMA PR PRN (01:44)
[2020-06-20] MEDS ORDERED: ACETAMINOPHEN 650 MG SUPP.RECT PR PRN (01:44)
[2020-06-20] MEDS ORDERED: GLYCERIN/WITCH HAZEL LEAF 1 EACH MED..WIPE TP PRN (01:44)
[2020-06-20] MEDS ORDERED: OXYTOCIN/0.9 % SODIUM CHLORIDE 30 UNIT/500 ML RTUINJ IV PRN (01:44)
[2020-06-20] MEDS ORDERED: BENZOCAINE/MENTHOL AEROSOL SPRAY 56 ML TOP PRN (01:44)
[2020-06-20] MEDS ORDERED: DIPH/PERTUSS(ACELL)/TETANUS VAC/PF 0.5 ML SYR (>=10YO) IM PRN (01:44)
[2020-06-20] MEDS ORDERED: MEASLES,MUMPS&RUBELLA VACC/PF 0.5 ML VIAL SUBCUT PRN (01:44)
[2020-06-20] MEDS ORDERED: PROMETHAZINE HCL 25 MG SUPP.RECT PR PRN (01:44)
[2020-06-20] MEDS ORDERED: PROMETHAZINE HCL INJ 25 MG/1 ML VIAL IV PRN (01:44)
[2020-06-20] MEDS ORDERED: MAGNESIUM HYDROXIDE SUSP 30 ML UDCUP PO PRN (01:44)
[2020-06-20] MEDS ORDERED: ZOLPIDEM TARTRATE 5 MG TABLET PO PRN (01:44)
[2020-06-20] MEDS ORDERED: DIBUCAINE 1% OINTMENT 28 GM TP PRN (01:44)
[2020-06-20] MEDS ORDERED: PROMETHAZINE HCL 25 MG TABLET PO PRN (01:44)
[2020-06-20 03:37] LABS: APPEARANCE,URINE CLOUDY; BILIRUBIN,URINE NEGATIVE (NEGATIVE); COLOR,URINE YELLOW; GLUCOSE, URINE NEGATIVE (NEGATIVE); KETONES,URINE NEGATIVE (NEGATIVE); LEUKOCYTE ESTERASE,URINE MODERATE (NEGATIVE); NITRITE,URINE POSITIVE (NEGATIVE); PROTEIN,URINE 100 mg/dL (NEGATIVE); URINE SPECIFIC GRAVITY 1.018; UROBILINOGEN,URINE NEGATIVE mg/dL (<2.0)
--- NOTE | 2020-06-20 03:50 | Birth Certificate Data ---
Cert Data Datetime Report Generated by CPLinda: 06/20/2020 03:50 CERTIFICATE DATA Delivery Provider: Mane Miranda MD (03/10/2020 16:17:Giana Tabares RN) 47a. Care: Yes (03/10/2020 16:17:Shey Church RN) 47b. Date of First Visit: 12/19/2019 00:00 (03/10/2020 16:17:Krystin Bronson RN) 47c. Date of Last Visit: 06/17/2020 00:00 (03/10/2020 16:17:Krystin Bronson RN) 47d. Number of Visits: 13 (03/10/2020 16:17:Krystin Bronson RN) 48a. Number of Prev Live Births: 2 (03/10/2020 16:17:Shey Church RN) 48b. Now Livin (03/10/2020 16:17:Shey Church RN) 48c. Live Births Now : 0 (03/10/2020 16:17:QS system process) 48e. Losses: 0 (03/10/2020 16:17:Krystin Bronson RN) RISK FACTORS IN THIS 49a. Diabetes: No (03/10/2020 16:17:Shey Church RN) 49b. Hypertension: No (03/10/2020 16:17:Shey Church RN) 49c. Previous Births: 0 (03/10/2020 16:17:Krystin Bronson RN) 49d. Stillborns: No (03/10/2020 16:17:Shey Church RN) 49d. IUGR: No (03/10/2020 16:17:Shey Church RN) 49e. Infertility Treatment: No (03/10/2020 16:17:Shey Church RN) 49f. Previous Cesareans: 0 (03/10/2020 16:17:Shey Church RN) Mother's Height 50b. Height Inches: 59 (06/20/2020 00:33:QS system process) Mother's Weight 51b. Weight at Delivery (lbs): 253 (06/20/2020 00:33:QS system process) Infections Present/Treated 53a. Gonorrhea: No (03/10/2020 16:17:Shey Church RN) Results this Hospital Visit : Negative (03/10/2020 16:17:KATHARINE Leigh) 53b. Syphilis: No (03/10/2020 16:17:Shey Church RN) 53c. Chlamydia: No (03/10/2020 16:17:Krystin Bronson RN) Results this Hospital Visit: Negative (03/10/2020 16:17:KATHARINE Leigh) 53d. Hepatitis B: No (03/10/2020 16:17:Shey Church RN) Results this Hospital Visit: Negative (03/10/2020 16:17:KATHARINE Leigh) 53e. Hepatitis C: Negative (03/10/2020 16:17:KATHARINE Leigh) 53h. Mother Tested for HBsAG: Yes (03/10/2020 16:17:KATHARINE Leigh) 53i. Date Tested: 03/10/2020 00:00 (Annotations: Data stored by Linda on behalf of user) (03/10/2020 16:17:KATHARINE Leigh) 53j. Test Result: Negative (03/10/2020 16:17:KATHARINE Leigh) Obstetric Procedures 54a, b, c. Obstetric Procedures: Ultrasound (03/10/2020 16:17:Shey Church RN) Cigarette Smoking Cigarette Smoking: Former Smoker. [id number] (03/10/2020 16:17:Shey Church RN) 55a. 3 Months Before Preg - Ci (03/10/2020 16:17:Jaida Browning RN) 55b. 1st Trimester of Preg- Ci (03/10/2020 16:17:Jaida Brownign RN) 55c. 2nd Trimester of Preg- Ci (03/10/2020 16:17:Jaida Browning RN) 55d. 3rd Trimester of Preg- Ci (03/10/2020 16:17:Jaida Browning RN) Onset of Labor 56a. PROM >12 Hrs: 0.27 (03/10/2020 16:17:QS system process) 56b. Precipitous Labor <3 Hrs: 7 (03/10/2020 16:17:QS system process) 56c. Prolonged Labor > 20 Hrs: 7 (03/10/2020 16:17:QS system process) 57a. Induction of Labor: N/A (03/10/2020 16:17:Giana Tabares RN) 57c. Non-Vertex Presentation A: Vertex (03/10/2020 16:17:Giaan Tabares RN) 57d. Steroids - Lung Mat: None (03/10/2020 16:17:Giana Tabares RN) 57d. Steroids - Lung Mat: Not Applicable (03/10/2020 16:17:Mane Miranda MD ([facility])) 57f. Mat [place] or Temp >100.4: 98.3 (03/10/2020 16:17:Krystin Bronson RN) 57g. Moderate/Heavy Meconium: Moderate Meconium (06/20/2020 01:12:Giana Tabares RN) 57h. Intolerance of Labor: N/A (03/10/2020 16:17:Giana Tabares RN) : N/A (03/10/2020 16:17:Giana Tabares RN) 57i. Epidural/Spinal Anesthesia: None (03/10/2020 16:17:Giana Tabares RN) Method of Delivery 58a. Forceps - Unsuccessful A: N/A (03/10/2020 16:17:Giana Tabares RN) 58b. Vacuum - Unsuccessful A: N/A (03/10/2020 16:17:Giana Tabares RN) 58c. Presentation at 58c. Presentation at - A : Vertex (03/10/2020 16:17:Giana Tabares RN) 58c. Presentation at - A : N/A (03/10/2020 16:17:Mane Miranda MD ([facility])) 58c. Presentation at - A : Cephalic (06/20/2020 00:27:Jessenia Castro RN) Final Route and Method of Del 58d. Baby A Route/Delivery: Vaginal (03/10/2020 16:17:Giana Tabares RN) 58e. Trial of Labor Attempted: No (03/10/2020 16:17:Giana Tabares RN) 58e. Trial of Labor Attempted A: N/A (03/10/2020 16:17:Giana Tabares RN) 58e. Trial of Labor Attempted B: N/A (03/10/2020 16:17:Giana Tabares RN) Maternal Morbidity 59b. 3rd or 4th Degree Lacs: None (03/10/2020 16:17:Mane Miranda MD ([facility])) Birthweight Baby A: 3308 (03/10/2020 16:17:Chelo Roe, RN) 60a. Pounds : 7 (03/10/2020 16:17:QS system process) 60b. Ounces: 5 (03/10/2020 16:17:QS system process) 61. GA at Delivery Baby A: 41.0 (03/10/2020 16:17:Giana Tabares RN) : Late Term- 41- 41.6 Weeks (03/10/2020 16:17:QS system process) 62a. 5 Minute Baby A: 9 (03/10/2020 16:17:QS system process)
--- NOTE | 2020-06-20 03:50 | Delivery Summary ---
Del Sum A-C Datetime Report Generated by CPN: 06/20/2020 03:50 DELIVERY PERSONNEL DELIVERY PERSONNEL: [id number] Delivery Doctor:: Mane Miranda MD Labor and Delivery Nurse:: Giana Tabares RNedm operator Nurse:: Krystin Bronson RN Photographic Supervisor/LAB SUPPORT SERVICE TECH: Tasha Ross, ST MATERNAL INFORMATION Delivery Anesthesia: None Medications After Delivery: Pitocin 30 Units in 500ml NS/D5W Estimated Blood Loss (ml): 200 Delivery QBL: 300 Maternal Complications: None LABOR SUMMARY EDC: 06/13/2020 00:00 No. Babies in Womb: 1 Attempted: No Labor Anesthesia: None LABOR INFORMATION Reason for Induction: Not Applicable Onset of Labor: 06/19/2020 18:00 Complete Dilatation: 06/20/2020 01:04 Oxytocin: N/A Group B Beta Strep: neg Antibiotics # of Doses: N/A Name of Antibiotic Given: N/A Steroids Given: None Reason Steroids Not Administered: Not Applicable MEMBRANES Membranes Rupture Method: Artificial Rupture of Membranes: 06/20/2020 01:12 Length of Rupture (hr): 0.27 Amniotic Fluid Color: Moderate Meconium Amniotic Fluid Amount: Moderate Amniotic Fluid Odor: Normal STAGES OF LABOR Stage 1 hr: 7 Stage 1 min: 4 Stage 2 hr: 0 Stage 2 min: 24 Stage 3 hr: 0 Stage 3 min: 2 Total Time in Labor hr: 7 Total Time in Labor min: 30 VAGINAL DELIVERY Episiotomy: None Laceration #1: None Laceration Extension #1: N/A Laceration #2: None Laceration Extension #2: N/A Laceration #3: None Laceration Extension #3: N/A Laceration Repair: Not Applicable Sponge Count Correct: Vaginal Sweep Performed Sharps Count Correct: Yes CSECTION DELIVERY Primary Indication: N/A Secondary Indication: N/A CSection Incidence: N/A Labor: N/A Elective: N/A CSection Incision: N/A BABY A INFORMATION Infant Delivery Date/Time: 06/20/2020 01:28 Method of Delivery: Vaginal Nurse Controlled Delivery: No Born in Route : No : N/A Forceps: N/A Vacuum Extraction: N/A Shoulder Dystocia : No PRESENTATION/POSITION BABY A Presentation: Cephalic Cephalic Presentation: Vertex Vertex Position: Left Occipital Anterior Breech Presentation: N/A PLACENTA INFORMATION BABY A Placenta Delivery Time : 06/20/2020 01:30 Placenta Method of Delivery: Spontaneous Placenta Status: Delivered SCORES BABY A Heart Rate 1 min: >100 bpm Resp Effort 1 min: Good Cry Reflex Irritability 1 min: Cough or Sneeze or Pulls Away Muscle Tone 1 min: Active Motion Color 1 min: Body Theresa, Extremities Blue Resuscitation Effort 1 min: Tactile Stimulation SCORE 1 MIN: 9 Heart Rate 5 min: >100 bpm Resp Effort 5 min: Good Cry Reflex Irritability 5 min: Cough or Sneeze or Pulls Away Muscle Tone 5 min: Active Motion Color 5 min: Body Theresa, Extremities Blue Resuscitation Effort 5 min: Tactile Stimulation SCORE 5 MIN: 9 INFORMATION BABY A Gestational Age at Delivery: 41.0 Gestational Status: Late Term- 41- 41.6 Weeks Outcome : Liveborn Infant Condition : Stable Sex: Female IDENTIFICATION BABY A Verification Date/Time: 06/20/2020 01:36 ID Band Number: [id number] Mother's Name Verified: Yes Infant RN Verifying : Chester Castro NOMAN Additional Verifying Personnel: US Alonso WEIGHT/LENGTH BABY A Infant Birthweight (gm): 3308 Infant Weight (lb): 7 Weight (oz): 5 Length (in): 19.25 (Annotations: Data stored by CPN on behalf of user) Length (cm): 48.90 CORD INFORMATION BABY A No. Cord Vessels: 3 Nuchal Cord : N/A Cord Blood Taken: Yes-For Storage (Mom's Blood type +) Infant Suction: None ASSESSMENT BABY A Complications: None Physical Findings at Delivery: Within Normal Limits Infant Respirations: Appears Normal Skin to Skin: Yes Transferred To: Remains with Mother BABY B INFORMATION : N/A SIGNATURES Signature: with User ID: [email or web address]
[2020-06-20] MEDS ORDERED: IBUPROFEN 800 MG TABLET ONE (03:54)
[2020-06-20 03:57] LABS: URINE AMPHETAMINES SCREEN NEGATIVE; URINE BARBITURATES SCREEN NEGATIVE; URINE BENZODIAZEPINES SCREEN NEGATIVE; URINE COCAINE SCREEN NEGATIVE; URINE MARIJUANA (THC) SCREEN NEGATIVE; URINE METHADONE SCREEN NEGATIVE; URINE PHENCYCLIDINE SCREEN NEGATIVE
[2020-06-20] MEDS ORDERED: IBUPROFEN 800 MG TABLET PO SCH (06:00)
--- NOTE | 2020-06-20 09:47 | PDOC PROGRESS REPORT ---
Subjective-OB Progress Note for:: 06/20/20 - Delivery Day, doing well, UOB, sitting in chair, A+, Rubella immune, bottlefeeding Physical Exam (OB) Vital Signs: Temp Pulse Resp BP Pulse Ox 98.1 F 107 H 18 144/90 H 99 06/20/20 04:16 06/20/20 04:16 06/20/20 04:16 06/20/20 04:16 06/20/20 04:16 Intake & Output 06/19/20 06/20/20 06/21/20 06:59 06:59 06:59 Intake Total 222 Balance 222 Weight 114.9 kg - General General Appearance: Appears well, Alert - PIH/Pre-Eclampsia Headache: Absent Epigastric Pain: No Visual Changes: No - Maternal Morbidity 59. Maternal Morbidity (serious complications experinced by the mother associated with labor and delivery: None of the above - Lochia Lochia Amount: Scant < 10 ml Lochia Color: Rubra/Red - Abdomen Description: Soft Hernia Present: No Fundal Description: Firm, Midline Fundal Height: u/u - u/2 - Respiratory Respiratory Status: No respiratory distress - Abdominal Distension: No distension Tenderness: Nontender - Genitourinary Genitourinary Note: voiding - Extremities Upper extremity: Normal inspection Lower extremities: Edema - Neurological Cognition: Normal Orientation: AAOx4 - Psychological Associated symptoms: Normal affect, Normal mood - Skin Skin Temperature: Warm Skin Moisture: Dry Objective-Diagnostic Laboratory: 06/20/20 00:53 06/20/20 06/20/20 06/20/20 00:05 00:53 00:53 WBC 17.7 H RBC 4.56 Hgb 11.7 L Hct 35.5 L MCV 78 L MCH 25.7 L MCHC 33.1 RDW 16.8 H Plt Count 227 Seg Neutrophils % 81.1 H Urine Color YELLOW Urine Appearance CLOUDY Urine pH 6.0 Ur Specific [place] 1.018 Urine Protein 100 H Urine Glucose (UA) NEGATIVE Urine Ketones NEGATIVE Urine Blood LARGE H Urine Nitrite POSITIVE H Ur Leukocyte Esterase MODERATE H Blood Type A POSITIVE Antibody Screen NEGATIVE Assessment and Plan(PN) - Assessment and Plan (2) UTI in Qualifiers: Trimester: third trimester Qualified Code(s): O23.43 - Unspecified inf ection of urinary tract in , third trimester Is this a current diagnosis for this admission?: Yes Plan:: Routine PP orders, ambulation encouraged - Time Spent with Patient Time with patient: Less than 15 minutes Medications reviewed and adjusted accordingly: Yes - Disposition Anticipated Discharge Disposition: Home, Self Care Anticipated Discharge Timeframe: within 24 hours
[2020-06-20] MEDS: FERROUS SULFATE 325 MG TABLET PO SCH ×2 (11:07→18:00)
[2020-06-20] MEDS: SENNOSIDES/DOCUSATE 8.6-50 MG 1 EACH TABLET PO SCH (11:07)
[2020-06-20] MEDS: FAMOTIDINE 20 MG TABLET PO SCH ×2 (11:07→21:27)
[2020-06-20] MEDS: DOCUSATE SODIUM 100 MG CAPSULE PO SCH ×2 (11:07→18:00)
[2020-06-20] MEDS: PRENATAL VITAMIN W DHA CAPSULE PO SCH (11:07)
[2020-06-20] MEDS: IBUPROFEN 800 MG TABLET PO SCH ×2 (15:12→21:30)
[2020-06-21] MEDS: IBUPROFEN 800 MG TABLET PO SCH ×2 (04:59→12:35)
[2020-06-21 08:22] LABS: HEMATOCRIT 31.7 % (36.0-47.0); HEMOGLOBIN 10.3 g/dL (12.0-15.5); MEAN CORPUSCULAR HEMOGLOBIN 25.6 pg (27.0-33.4); MEAN CORPUSCULAR HGB CONC 32.3 g/dL (32.0-36.0); MEAN CORPUSCULAR VOLUME 79 fl (80-97); PLATELET COUNT 219 10^3/uL (150-450); RED BLOOD COUNT 4.01 10^6/uL (3.72-5.28); RED CELL DISTRIBUTION WIDTH 17.3 % (11.5-14.0); WHITE BLOOD COUNT 14.5 10^3/uL (4.0-10.5)
--- NOTE | 2020-06-21 10:39 | PDOC PROGRESS REPORT ---
Subjective-OB Progress Note for:: 06/21/20 Subjective: reports bleeding slowing, pain controlled with current meds. denies needs Physical Exam (OB) Vital Signs: Temp Pulse Resp BP Pulse Ox 97.7 F 85 16 135/88 H 100 06/21/20 07:26 06/21/20 07:26 06/21/20 07:26 06/21/20 07:26 06/21/20 07:26 Intake & Output 06/20/20 06/21/20 06/22/20 06:59 06:59 06:59 Intake Total 222 Balance 222 Weight 114.9 kg - Maternal Morbidity 59. Maternal Morbidity (serious complications experinced by the mother associated with labor and delivery: None of the above - Abdomen Description: Soft, Round Hernia Present: No Fundal Description: Firm, Midline Fundal Height: u/u - u/2 - Abdominal Distension: No distension Tenderness: Nontender - Extremities Lower extremities: Jenny's sign - neg Calf: Normal, Nontender Objective-Diagnostic Laboratory: 06/21/20 07:07 06/21/20 07:07 WBC 14.5 H RBC 4.01 Hgb 10.3 L Hct 31.7 L MCV 79 L MCH 25.6 L MCHC 32.3 RDW 17.3 H Plt Count 219 Assessment and Plan(PN) - Assessment and Plan (1) (normal spontaneous vaginal delivery) Is this a current diagnosis for this admission?: Yes (2) Spontaneous onset of labor Is this a current diagnosis for this admission?: Yes - Time Spent with Patient Time with patient: Less than 15 minutes Medications reviewed and adjusted accordingly: Yes - Disposition Anticipated Discharge Disposition: Home, Self Care Anticipated Discharge Timeframe: within 24 hours
[2020-06-21] MEDS: FAMOTIDINE 20 MG TABLET PO SCH (11:26)
[2020-06-21] MEDS: PRENATAL VITAMIN W DHA CAPSULE PO SCH (11:26)
[2020-06-21] MEDS: FERROUS SULFATE 325 MG TABLET PO SCH (11:26)
[2020-06-21] MEDS: SENNOSIDES/DOCUSATE 8.6-50 MG 1 EACH TABLET PO SCH (11:26)
[2020-06-21] MEDS: DOCUSATE SODIUM 100 MG CAPSULE PO SCH (11:26)
[2020-06-21 14:11] VITALS: BP 139/80
--- NOTE | 2020-06-21 14:23 | PDOC DISCHARGE SUMMARY ---
Impression - Admit/DC Date/PCP Admission Date/Primary Care Provider: 06/20/20 00:51 JOEL MUNGUIA MD Discharge Date: 06/21/20 - Discharge Diagnosis (1) (normal spontaneous vaginal delivery) Is this a current diagnosis for this admission?: Yes (2) Spontaneous onset of labor Is this a current diagnosis for this admission?: Yes - Additional Information Discharge Diet: Regular Discharge Activity: Balance Activity w/Rest, Pelvic Rest Referrals: [facility] [Provider Group] (Please call and schedule a 4 week f/u at [facility].) Home Medications: Vits96/Iron Fum/Folic [ Tablet] 1 each PO DAILY 01/10/20 Hospital Course 59. Maternal Morbidity (serious complications experinced by the mother associated with labor and delivery: None of the above Results Laboratory Results: WBC 14.5 10^3/uL (4.0-10.5) H 06/21/20 07:07 RBC 4.01 10^6/uL (3.72-5.28) 06/21/20 07:07 Hgb 10.3 g/dL (12.0-15.5) L 06/21/20 07:07 Hct 31.7 % (36.0-47.0) L 06/21/20 07:07 MCV 79 fl (80-97) L 06/21/20 07:07 MCH 25.6 pg (27.0-33.4) L 06/21/20 07:07 MCHC 32.3 g/dL (32.0-36.0) 06/21/20 07:07 RDW 17.3 % (11.5-14.0) H 06/21/20 07:07 Plt Count 219 10^3/uL (150-450) 06/21/20 07:07 Lymph % (Auto) 12.7 % (13-45) L 06/20/20 00:53 [place] % (Auto) 5.3 % (3-13) 06/20/20 00:53 Eos % (Auto) 0.3 % (0-6) 06/20/20 00:53 Baso % (Auto) 0.6 % (0-2) 06/20/20 00:53 Absolute Neuts (auto) 14.4 10^3/uL (1.7-8.2) H 06/20/20 00:53 Absolute Lymphs (auto) 2.2 10^3/uL (0.5-4.7) 06/20/20 00:53 Absolute Monos (auto) 0.9 10^3/uL (0.1-1.4) 06/20/20 00:53 Absolute Eos (auto) 0.1 10^3/uL (0.0-0.6) 06/20/20 00:53 Absolute Basos (auto) 0.1 10^3/uL (0.0-0.2) 06/20/20 00:53 Seg Neutrophils % 81.1 % (42-78) H 06/20/20 00:53 Urine Color YELLOW 06/20/20 00:05 Urine Appearance CLOUDY 06/20/20 00:05 Urine pH 6.0 (5.0-9.0) 06/20/20 00:05 Ur Specific [place] 1.018 06/20/20 00:05 Urine Protein 100 mg/dL (NEGATIVE) H 06/20/20 00:05 Urine Glucose (UA) NEGATIVE mg/dL (NEGATIVE) 06/20/20 00:05 Urine Ketones NEGATIVE mg/dL (NEGATIVE) 06/20/20 00:05 Urine Blood LARGE (NEGATIVE) H 06/20/20 00:05 Urine Nitrite POSITIVE (NEGATIVE) H 06/20/20 00:05 Urine Bilirubin NEGATIVE (NEGATIVE) 06/20/20 00:05 Urine Urobilinogen NEGATIVE mg/dL (<2.0) 06/20/20 00:05 Ur Leukocyte Esterase MODERATE (NEGATIVE) H 06/20/20 00:05 Urine Ascorbic Acid NEGATIVE (NEGATIVE) 06/20/20 00:05 Urine Opiates Screen NEGATIVE 06/20/20 00:05 Urine Methadone Screen NEGATIVE 06/20/20 00:05 Ur Barbiturates Screen NEGATIVE 06/20/20 00:05 Ur Phencyclidine Scrn NEGATIVE 06/20/20 00:05 Ur Amphetamines Screen NEGATIVE 06/20/20 00:05 U Benzodiazepines Scrn NEGATIVE 06/20/20 00:05 Urine Cocaine Screen NEGATIVE 06/20/20 00:05 U Marijuana (THC) Screen NEGATIVE 06/20/20 00:05 RPR NONREACTIVE (NONREACTIVE) 06/20/20 00:53 Blood Type A POSITIVE 06/20/20 00:53 Antibody Screen NEGATIVE 06/20/20 00:53 Plan Plan of Treatment: follow up in 4 weeks at [facility] for post check
== END 2020-06-21 15:40 | disposition home or self-care (01) | DRG 806 ==
LOC: LC → LR 00:51 → 2S 04:04
PROVIDERS: ADMIT Obstetrics & Gynecology; ATTEND Obstetrics & Gynecology
PROC: 10E0XZZ Delivery of Products of Conception, External Approach (ICD-10-PCS; principal; 2020-06-20)
DX: O48.0 Post-term pregnancy (principal); O99.324 Drug use complicating childbirth; Z37.0 Single live birth; O77.0 Labor and delivery complicated by meconium in amniotic fluid; F12.90 Cannabis use, unspecified, uncomplicated; Z3A.41 41 weeks gestation of pregnancy; Z88.0 Allergy status to penicillin; Z87.891 Personal history of nicotine dependence
CPT/HCPCS: 36415; 80307; 81005; 85025; 85027; 86592; 86850; 86900; 86901; J2590; J3490